=== PATIENT | male | born 1955 | race Caucasian/White ===

== ENCOUNTER 2016-08-26 13:42 | Emergency (ER) | payer MEDICARE, MEDICAID ==
[2016-08-26] MEDS ORDERED: hydrALAZINE HCL 20 MG/ML VIAL IV ONE ×2 (14:05→15:05)
--- OUTSIDE RECORDS SUMMARY | 2016-08-26 14:10 | XMS REPORT | Continuity of Care Document ---
:1955 Author Organization [facility] ([facility]) Address [address] [place] [address] Phone [phone] Care Team Providers Name Role Phone [email or web address] Primary Care Provider [phone] Source Comments This disclosure is being made pursuant to the Care Everywhere program, applicable federal and state laws, and may not contain all informaitonavailable regarding this patient.[facility] ([facility]) Active Allergies and Adverse Reactions No Known Allergies Current Medications Prescription Sig. Disp. Refills Start Date End Date Status SUPPLY blood Use to test blood 300 Strip 11 07/07/2012 Active glucose test strips sugar twice daily or as directed. Indications: DIABETES MELLITUS pravastatin 20 mg Take 1 Tab by mouth 30 Tab 5 05/23/2013 Active tablet every evening. Take instead of atorvastatin Indications: MIXED HYPERLIPIDEMIA SUPPLY FREESTYLE by In Vitro route 2 1 Each 0 09/04/2013 Active FREEDOM LITE meter times daily. Indications: TYPE 2 DIABETES MELLITUS SUPPLY FREESTYLE Use twice daily or as 150 Each 11 09/04/2013 Active lancets directed. Indications: DIABETES MELLITUS GABAPENTIN 100 mg Take 200 mg by mouth 09/25/2013 Active capsule daily amLODIPine 10 mg Take 1 Tab by mouth 30 Tab 2 11/20/2013 Active tablet daily. Indications: HYPERTENSION lisinopril 20 mg Take 20 mg by mouth Active tablet daily. calcium carbonate Take 200 mg by mouth Active (200 mg Ca) 500 mg as needed chewable tablet FOLIC ACID/VITAMIN Take 1 mg by mouth Active B COMP W-C daily (NEPHRO-MELONY PO) furosemide 80 mg Take 80 mg by mouth Active tablet Every morning. 160 mg (2 tablets) in the AM metoPROLol Take 100 mg by mouth Active succinate 100 mg XL daily tablet insulin glargine Inject 16 Units 15 mL 11 01/10/2015 Active (LanTUS SOLOSTAR) subcutaneously daily 100 unit/mL (3 mL) injection pen pantoprazole 40 mg Take 1 tablet (40 mg 60 tablet 11 01/10/2015 Active EC tablet total) by mouth 2 times daily calcium acetate 667 Take 1 capsule by 05/28/2015 Active mg capsule mouth every week. polyethylene Take as directed 4000 mL 0 06/10/2015 Active glycol-electrolyte (NULYTELY) suspension SUPPLY BD insulin USE DIRECTED WITH 100 Each 6 09/19/2015 Active UF mini 31 g x 5 MM INSULIN PENS pen needle Active Problems Patient Care Coordination Note GOALS OF CARE AND TREATMENT PREFERENCES Diagnosis: Gastrointestinal bleeding, hemorrhagic shock Prognosis: Guarded Goal(s) of Care: Resolution of bleeding and shock Is the patient an inpatient? He is impatient Most important goal of care: Resolution of bleeding or shock Additional remarks: Patient does not have DPOA Patient able to make own decisions?: No Problem Noted Date Tip's gland hyperplasia of duodenum 12/11/2015 Hypoparathyroidism 01/09/2015 Hypocalcemia 01/09/2015 Anemia due to blood loss, acute 01/09/2015 Duodenal ulcer with hemorrhage 01/08/2015 ESRD (end stage renal disease) 01/07/2015 Type II or unspecified type diabetes mellitus without mention of 01/07/2015 complication, not stated as uncontrolled GIB (gastrointestinal bleeding) 01/06/2015 Hemorrhagic shock 01/06/2015 Hypercalcemia 10/23/2013 Encounter for venous access device care 06/16/2013 A-V fistula 03/27/2013 Preop examination 03/27/2013 ESRD needing dialysis 01/23/2013 Acidosis, metabolic 2013 Hyperphosphatemia 2013 Proteinuria 2013 Smoking 10/09/2012 Hyperopia with presbyopia 08/18/2012 Renal cell carcinoma 08/09/2012 Overview: 07/2012 Renal cell carcinoma, clear type, En[place] grade 2 Type II or unspecified type diabetes mellitus without mention of 06/03/2012 complication, uncontrolled Obesity (BMI 30-39.9) 04/28/2012 Health counseling 10/28/2011 CASISE (obstructive sleep apnea) 07/12/2011 Hyperlipidemia 07/12/2011 HTN (hypertension) 07/12/2011 TIA (transient ischemic attack) 07/12/2011 CKD (chronic kidney disease) stage 5, GFR less than 15 ml/min 04/28/2007 Hypoparathyroidism 10/21/2006 Overview: Autosomal dominant Familial hypoparathyroidism Resolved Problems Problem Noted Date Resolved Date Hyperkalemia 08/11/2012 09/28/2012 Acute blood loss anemia 08/10/2012 08/11/2012 Chronic kidney disease, unspecified 06/11/2006 04/27/2012 Immunizations Name Dates Previously Given Next Due Influenza, PF 04/04/2012 Pneumococcal, unspecified 03/17/2015 Tdap 10/28/2011 Social History Tobacco Use Types Packs/Day Years Used Date Current Some Day Smoker Cigarettes 1 30 Smokeless Tobacco: Never Used Tobacco Cessation:Ready to Quit: No; Counseling Given: Yes Comments: Alcohol Use Drinks/Week oz/Week Comments Yes 1 Glasses of wine 1 beer per month 2 Cans of beer 1 Standard drinks or equivalent Last Filed Vital Signs Vital Sign Reading Time Taken Blood Pressure 120/79 12/11/2015 11:07 AM CDT Pulse 80 12/11/2015 11:07 AM CDT Temperature 37 C (98.6 F) 12/11/2015 11:07 AM CDT Respiratory Rate 18 12/11/2015 11:07 AM CDT Height 1.778 m (5' 10") 12/11/2015 11:07 AM CDT Weight 109.7 kg (241 lb 13.5 oz) 12/11/2015 11:07 AM CDT Body Mass Index 34.7 12/11/2015 11:07 AM CDT Oxygen Saturation 94% 08/22/2015 2:37 PM CDT Plan of Care Patient Goal Type Goal Weight Weight below 91 kg (200 lb) Lifestyle Quit smoking / using tobacco Health Maintenance Due Date Last Done Comments Hepatitis B Vaccine (1 of 3 - 1955 Primary Series) MMR Vaccine 1975 Pneumococcal Vaccine (1 of 3 01/03/1976 - PCV13) Sigmoidoscopy Colon Cancer 2007 Screening DIABETIC: Foot Exam 10/27/2012 10/28/2011, 10/28/2011 FOBT Colon Cancer Screening 10/27/2012 10/28/2011 Prostate Cancer Screening 10/27/2012 10/28/2011 DIABETIC: Retinal Eye Exam 08/18/2013 08/18/2012, 08/18/2012, 07/16/2011 (Previously completed) DIABETIC: Cholesterol 10/07/2013 10/07/2012, Additional history exists 07/07/2012, 10/28/2011 Diabetic: Hdl 10/07/2013 10/07/2012, Additional history exists 07/07/2012, 10/28/2011 Diabetic: Ldl 10/07/2013 10/07/2012, Additional history exists 07/07/2012, 10/28/2011 DIABETIC: Triglycerides 10/07/2013 10/07/2012, Additional history exists 07/07/2012, 10/28/2011 DIABETIC: Microalbumin 12/26/2013 12/26/2012, 10/28/2011 DIABETIC: Hemoglobin A1C 06/19/2015 12/17/2014 Additional history exists (Previously completed), 10/07/2012, 07/07/2012 Influenza Vaccine: Seasonal 12/16/2015 04/04/2012 (#1) Td Vaccine 10/27/2021 10/28/2011 Colonoscopy 06/25/2025 06/25/2015 Tdap Vaccine Completed 10/28/2011 HCV Screening Completed 01/07/2015, 05/08/2013, 04/04/2012 Results from Last 3 Months Not on file
[2016-08-26] MEDS ORDERED: hydrALAZINE HCL 20 MG/ML VIAL ONE ×2 (14:14→15:03)
[2016-08-26 14:27] LABS: Hematocrit 40.1 % (42.0-52.0); Hemoglobin 13.6 gm/dL (13.5-18.0); Mean Cell Volume 92.8 fl (78-100); Mean Corpuscular Hemoglobin 31.5 pg (27-31); Mean Corpuscular Hgb Conc 33.9 g/dl (32-36); Mean Platelet Volume 11.1 fl (6.0-9.5); Neutrophil # 4.5 K/mm3 (1.3-6.0); Neutrophil % 68.9 % (42-75.0); Platelet Count 159 K/mm3 (150-450); Red Blood Count 4.32 M/mm3 (4.7-6.0); White Blood Count 6.6 K/mm3 (4.0-10.5)
[2016-08-26 14:33] LABS: Albumin * 3.6 gm/dl (3.4-5.0); Anion Gap 9.3 mmol/L (6.8-13.8); BUN/Creatinine Ratio 3.5 (9.0-21.6); Bilirubin, Total 0.4 mg/dL (0.0-1.1); Ca. Corrected For Albumin 8.5 mg/dL (8.4-10.2); Calcium * 8.5 mg/dL (7.9-10.9); Carbon Dioxide 34.9 mmol/L (24-32.6); Magnesium 1.6 mg/dL (1.2-2.8); Phosphorus 2.9 mg/dL (2.2-4.2); Potassium 4.2 mmol/L (3.4-4.6)
[2016-08-26 15:10] LABS: Prothrombin Time (Patient) 10.3 Seconds (9.4-11.4)
[2016-08-26 15:12] LABS: INR 0.99 INR (0.90-1.10)
[2016-08-26 15:29] VITALS: BP 145/85
[2016-08-26] MEDS ORDERED: HYDROcodone/ACETAMINOPHEN 1 EACH TABLET PO ONE (15:43)
--- NOTE | 2016-08-26 16:08 | ERNOTE ---
Headache ER HPI - General Presenting Symptoms: headache Time Seen by Provider: 08/26/16 14:03 Source: patient - Immun/Allergies/Home Medications Immunizations: IMMUNIZATION HX Immunizations Up to Date No Hx Pneumococcal Vaccination Yes Allergies/Adverse Reactions: Allergies No Known Allergies Allergy (Verified 08/26/16 13:51) Home Medications: HOME MEDICATIONS Furosemide 160 mg PO QAM 03/17/12 [Last Taken 03/17/12] Pravastatin Sodium 20 mg PO HS 04/03/13 [Last Taken Unknown] Calcium Carbonate [Tums] 1,500 mg PO TID 12/28/14 [Last Taken Unknown] Folic Acid/B Cplx/C/Selen/Zinc [Dialyvite 3,000 Tablet] 1 each PO DAILY [Last Taken Unknown] Furosemide [Lasix] 80 mg PO HS 12/28/14 [Last Taken Unknown] Gabapentin [Neurontin] 100 mg PO DAILY 12/28/14 [Last Taken Unknown] Lanthanum Carbonate [Fosrenol] 1,000 mg PO TID 12/28/14 [Last Taken Unknown] Lisinopril [Zestril] 20 mg PO DAILY 12/28/14 [Last Taken Unknown] Metoprolol Tartrate 100 mg PO DAILY 12/28/14 [Last Taken Unknown] Insulin Glargine,Hum.rec.anlog [Lantus] 55 units SC DAILY 03/06/15 [Last Taken Unknown] HYDROcodone/ACETAMINOPHEN [[place] 5-325] 1 each PO Q4H #10 tablet 08/26/16 [Last Taken Unknown] hydrALAZINE HCL [Hydralazine HCl] 25 mg PO TID #90 tablet 08/26/16 [Last Taken Unknown] - Pain Pain Score: 8 - History of Present Illness Narrative: He presents from dialysis with markedly elevated blood pressure. Despite receiving dialysis and 2-3 L of fluid removed from him his blood pressure remained markedly high and he appeared to have some decreased level of consciousness according to the dialysis nurses. Patient was able to answer all my questions here he simply complained of a headache. Timing of Headache: gradual Quality: Present: pressure, throbbing Severity Maximum: Present: moderate Severity-Currently: Present: moderate Headache frequency: Present: frequent headaches, chronic headaches Associated Symptoms: Reports: denies symptoms Exacerbated by:: Reports: light Prior Treament: Reports: recently seen, treated by physician Review of Systems - Review of Systems Constitutional: Present: See HPI EYE: Present: no symptoms reported ENT: Present: no symptoms reported Respiratory: Present: no symptoms reported Cardiology: Present: no symptoms reported Gastrointestinal/Abdominal: Present: no symptoms reported Genitourinary: Present: no symptoms reported Musculoskeletal: Present: no symptoms reported Skin: Present: no symptoms reported Neurological: Present: See HPI, headache Endocrine: Present: no symptoms reported Hematologic/Lymphatic: Present: no symptoms reported Psych: Present: no symptoms reported - Patient's Past Medical History Patient History - Medical: Diabetes Type 2 Insulin Dependent, Hypothyroidism, Migraines, Obesity, Renal Disease, Renal Failure, Other Patient History - Cardiac/Respiratory: CVA/Stroke, Hypertension, Hyperlipidemia Patient History - Cancer: Kidney, Skin Patient History - Surgical Procedures: EGD, T & A, Other Patient History - Other: None - Family History Father Family History - Medical: , Diabetes Type 2 Family History - Cardiac/Respiratory: Hypertension, Other Mother Family History - Medical: , Diabetes Type 2 Family History - Cardiac/Respiratory: Hypertension, Other Sister Family History - Medical: Diabetes Type 2 - Social History Living Situations: home Abuse History: No History of abuse Psych History: No pertinent hx Alcohol Use: none Drug Use: none - Immunizations Immunizations Up to Date: No Hx Pneumococcal Vaccination: Yes Physical Exam - Physical Exam General Appearance: Present: wd/wn, alert, moderate distress Eye Exam: Normal inspection: bilateral, PERRL: bilateral Ears, Nose, Throat: Present: normal ENT inspection, H, normal pharynx Neck: Present: normal inspection, nontender Respiratory: Present: no respiratory distress, normal breath sounds, no accessory muscle use, chest nontender, lungs clear Cardiovascular/Chest: Present: regular rate, rhythm, no murmur, normal peripheral pulses Gastrointestinal/Abdominal: Present: normal bowel sounds, nontender, nondistended, soft, no organomegaly Rectal Exam: Present: deferred Back Exam: Present: normal inspection, normal range of motion Extremity Exam: Present: normal inspection, non-tender, no edema, normal range of motion Neurological Exam: Present: alert, oriented, normal mood/affect Skin Exam: Present: normal color, warm/dry Lymphatic Exam: Present: no adenopathy ED Progress - Results and Orders Patient's Lab Results:: I have reviewed the patient's lab results. - Vital Signs Patient's Vital Signs:: I have reviewed the patient's vital signs. Vital Signs: Vital Signs 08/26/16 08/26/16 08/26/16 13:46 13:58 14:16 Temperature 36.0 C L Pulse Rate 71 66 65 Respiratory 12 12 Rate Blood Pressure 150/105 191/87 164/86 O2 Sat by Pulse 99 99 Oximetry 08/26/16 08/26/16 15:07 15:28 Temperature Pulse Rate 69 70 Respiratory 12 Rate Blood Pressure 191/111 145/85 O2 Sat by Pulse 99 Oximetry - CT/Ultrasound CT/Ultrasound Narrative: CT results were reviewed - Progress/Reassessment Chief Complaint: Headache Progress:: Improved Plan - Plan Plan: Patient was given IV hydralazine here in the emergency department his blood pressure to the 140/80 range and he felt considerably better. While his headache is improved I will send him home with both oral hydralazine to take and a brief course of [place] until his blood pressure gets more stabilized. Departure Clinical Impression: Renal dialysis status, Hypertension associated with stage 5 chronic kidney disease due to type 2 diabetes mellitus - Departure Disposition: Home self-care Condition: Good Instructions: Hypertension, [id number], Chronic Kidney Disease Referrals: Ludy Lynch MD [Primary Care Provider] - Prescriptions: HYDROcodone/ACETAMINOPHEN [[place] 5-325] 1 each PO Q4H #10 tablet hydrALAZINE HCL [Hydralazine HCl] 25 mg PO TID #90 tablet
[2016-08-26] MEDS ORDERED: HYDROcodone/ACETAMINOPHEN 1 EACH TABLET ONE (16:10)
[2016-08-26] MEDS ORDERED: hydrALAZINE HCL 25 MG TABLET PO ONE (17:00)
== END 2016-08-26 16:26 | disposition home or self-care (01) ==
LOC: ER 13:42
DX: E11.22 Type 2 diabetes mellitus with diabetic chronic kidney disease (principal); I12.0 Hypertensive chronic kidney disease with stage 5 chronic kidney disease or end stage renal disease; N18.5 Chronic kidney disease, stage 5; Z99.2 Dependence on renal dialysis; Z85.828 Personal history of other malignant neoplasm of skin

== ENCOUNTER 2016-11-25 14:34 | Emergency (ER) | payer MEDICARE, MEDICAID ==
--- NOTE | 2016-11-25 15:20 | ERNOTE ---
Dizziness ER Record Presenting Symptoms: other Time Seen by Provider: 11/25/16 15:03 Source: patient Exam Limitations: no limitations Immunizations: IMMUNIZATION HX Immunizations Up to Date Yes History of Influenza Vaccine Yes Hx Pneumococcal Vaccination Yes Allergies/Adverse Reactions: Allergies Allergy/AdvReac Type Severity Reaction Status Date / Time No Known Allergies Allergy Verified 11/25/16 14:53 Home Medications: HOME MEDICATIONS Pravastatin Sodium 20 mg PO HS 04/03/13 [Last Taken Unknown] Calcium Carbonate [Tums] 500 mg PO TID 12/28/14 [Last Taken Unknown] Gabapentin [Neurontin] 100 mg PO DAILY 12/28/14 [Last Taken Unknown] Lisinopril [Zestril] 40 mg PO SUMOTUTH 12/28/14 [Last Taken Unknown] Metoprolol Tartrate 100 mg PO SUMOTUTH 12/28/14 [Last Taken Unknown] Insulin Glargine,Hum.rec.anlog [Lantus] 13 units SC HS 03/06/15 [Last Taken Unknown] HYDROcodone/ACETAMINOPHEN [[place] 5-325] 1 each PO Q4H #10 tablet 08/26/16 [Last Taken Unknown] hydrALAZINE HCL [Hydralazine HCl] 25 mg PO TID #90 tablet 08/26/16 [Last Taken Unknown] Calcium Acetate [Phoslo] 1 cap PO Q7D 11/25/16 [Last Taken Unknown] DULoxetine HCL [Cymbalta] 30 mg PO DAILY 11/25/16 [Last Taken Unknown] Gabapentin 200 mg PO HS 11/25/16 [Last Taken Unknown] Lisinopril [Zestril] 20 mg PO MOWEFR 11/25/16 [Last Taken Unknown] Metoprolol Succinate [Toprol Xl] 50 mg PO MOWEFR 11/25/16 [Last Taken Unknown] Pantoprazole Sodium [Protonix] 40 mg PO DAILY 11/25/16 [Last Taken Unknown] - History of Present Illness Narrative: Patient has renal failure and had dialysis this morning. The hospital van took him back home and when he got home he was 'not acting right' so he was brought to the ER for evaluation. When he got here he had a large BM and is feeling good now. He feels hungry, did not have anything to eat since last night, denies any other concerns. He had something similar happen at least once before Review of Systems - Review of Systems Constitutional: Absent: recent illness, fever, chills, malaise EYE: Absent: vision changes ENT: Absent: nose congestion, nasal drainage Respiratory: Absent: shortness of breath, cough Cardiology: Absent: chest pain Gastrointestinal/Abdominal: Absent: nausea, vomiting, diarrhea, abdominal pain Genitourinary: Present: no symptoms reported Musculoskeletal: Absent: back pain Neurological: Absent: headache, weakness, numbness - Patient's Past Medical History Patient History - Medical: Diabetes Type 2 Insulin Dependent, Hypothyroidism, Migraines, Obesity, Renal Disease, Renal Failure, Other Patient History - Cardiac/Respiratory: CVA/Stroke, Hypertension, Hyperlipidemia Patient History - Cancer: Kidney, Skin Patient History - Surgical Procedures: EGD, T & A, Other Patient History - Other: None - Family History Father Family History - Medical: , Diabetes Type 2 Family History - Cardiac/Respiratory: Hypertension, Other Mother Family History - Medical: , Diabetes Type 2 Family History - Cardiac/Respiratory: Hypertension, Other Sister Family History - Medical: Diabetes Type 2, Renal Failure Family History - Cardiac/Respiratory: Hypertension - Social History Living Situations: home Abuse History: No History of abuse Psych History: No pertinent hx Smoking Status: Current every day smoker Alcohol Use: none Drug Use: none - Immunizations Immunizations Up to Date: Yes Hx Pneumococcal Vaccination: Yes History of Influenza Vaccine: Yes Physical Exam - Physical Exam General Appearance: Present: wd/wn, alert, no apparent distress Eye Exam: Normal inspection: bilateral, PERRL: bilateral Respiratory: Present: no respiratory distress, normal breath sounds, lungs clear Cardiovascular/Chest: Present: regular rate, rhythm, no murmur Gastrointestinal/Abdominal: Present: normal bowel sounds, nontender, nondistended, soft Neurological Exam: Present: alert, oriented, normal mood/affect Skin Exam: Present: normal color, warm/dry ED Progress - Vital Signs Patient's Vital Signs:: I have reviewed the patient's vital signs. Vital Signs: Vital Signs 11/25/16 14:45 Temperature 35.5 C L Pulse Rate 70 Respiratory 16 Rate Blood Pressure 98/56 O2 Sat by Pulse 98 Oximetry - Progress/Reassessment Chief Complaint: Dizziness Progress Note-Subjective: 11/25/16 15:41 reviewed orthostatic vitals 11/25/16 16:18 patient had a sandwich and drank four glasses of water, feeling much better, blood pressure better, ready to go home Departure Clinical Impression: Dehydration - Departure Disposition: Home self-care Condition: Fair Instructions: Dehydration, Adult, [id number] Referrals: Ludy Lynch MD [Primary Care Provider] -
[2016-11-25 16:19] VITALS: BP 109/66
== END 2016-11-25 16:25 | disposition home or self-care (01) ==
LOC: ER 14:34
DX: E86.0 Dehydration (principal)

== ENCOUNTER 2017-05-18 00:18 | Emergency (ER) | payer MEDICARE, MEDICAID ==
--- NOTE | 2017-05-18 01:12 | ERNOTE ---
Trauma/Assault HPI - General Stated Complaint: FALL Time Seen by Provider: 05/18/17 01:01 Source: patient, EMS Exam Limitations: no limitations - Immun/Allergies/Home Medications Immunizations: IMMUNIZATION HX Immunizations Up to Date Yes History of Influenza Vaccine Yes Hx Pneumococcal Vaccination Yes Allergies/Adverse Reactions: Allergies No Known Allergies Allergy (Verified 05/18/17 00:31) Home Medications: HOME MEDICATIONS Pravastatin Sodium 20 mg PO HS 04/03/13 [Last Taken Unknown] Calcium Carbonate [Tums] 500 mg PO TID 12/28/14 [Last Taken Unknown] Gabapentin [Neurontin] 100 mg PO DAILY 12/28/14 [Last Taken Unknown] Lisinopril [Zestril] 40 mg PO SUMOTUTH 12/28/14 [Last Taken Unknown] Metoprolol Tartrate 100 mg PO SUMOTUTH 12/28/14 [Last Taken Unknown] Insulin Glargine,Hum.rec.anlog [Lantus] 13 units SC HS 03/06/15 [Last Taken Unknown] HYDROcodone/ACETAMINOPHEN [[place] 5-325] 1 each PO Q4H #10 tablet 08/26/16 [Last Taken Unknown] hydrALAZINE HCL [Hydralazine HCl] 25 mg PO TID #90 tablet 08/26/16 [Last Taken Unknown] Calcium Acetate [Phoslo] 1 cap PO Q7D 11/25/16 [Last Taken Unknown] DULoxetine HCL [Cymbalta] 30 mg PO DAILY 11/25/16 [Last Taken Unknown] Gabapentin 200 mg PO HS 11/25/16 [Last Taken Unknown] Lisinopril [Zestril] 20 mg PO MOWEFR 11/25/16 [Last Taken Unknown] Metoprolol Succinate [Toprol Xl] 50 mg PO MOWEFR 11/25/16 [Last Taken Unknown] Pantoprazole Sodium [Protonix] 40 mg PO DAILY 11/25/16 [Last Taken Unknown] - History of Present Illness Narrative: Pt states that he slipped and fell on the day before yesterday, felt he was all right and continued on with his usual activities. Last night he slipped and fell again, he called EMS initially with report that he just needed assistance getting up. After EMS arrived he decided that he should come to the ED to get his leg and ankle evaluated. Location Occurred: Reports: home Pain Location: Reports: lower extremity - left Method of Injury: Reports: fall Severity: mild Loss of Consciousness: Reports: no loss of consciousness Associated Symptoms - Trauma: Reports: denies symptoms Review of Systems - Review of Systems Constitutional: Absent: recent illness, fever EYE: Present: no symptoms reported ENT: Present: no symptoms reported Respiratory: Absent: shortness of breath Cardiology: Absent: chest pain Musculoskeletal: Present: See HPI, joint pain Skin: Present: no symptoms reported Neurological: Present: no symptoms reported Endocrine: Present: no symptoms reported Hematologic/Lymphatic: Present: no symptoms reported Psych: Present: no symptoms reported - Patient's Past Medical History Patient History - Medical: Diabetes Type 2 Insulin Dependent, Hypothyroidism, Migraines, Obesity, Renal Disease, Renal Failure, Other Patient History - Cardiac/Respiratory: CVA/Stroke, Hypertension, Hyperlipidemia Patient History - Cancer: Kidney, Skin Patient History - Surgical Procedures: EGD, T & A Patient History - Other: None - Family History Father Family History - Medical: , Diabetes Type 2 Family History - Cardiac/Respiratory: Hypertension, Other Mother Family History - Medical: , Diabetes Type 2 Family History - Cardiac/Respiratory: Hypertension, Other Sister Family History - Medical: Diabetes Type 2, Renal Failure Family History - Cardiac/Respiratory: Hypertension - Social History Living Situations: home Abuse History: No History of abuse Psych History: No pertinent hx Smoking Status: Current every day smoker Patient requests Smoking Cessation Consult: No Initiate information on Smoking Cessation: No Alcohol Use: none Drug Use: none - Immunizations Immunizations Up to Date: Yes Hx Pneumococcal Vaccination: Yes History of Influenza Vaccine: Yes Physical Exam - Physical Exam General Appearance: Present: wd/wn, alert, no apparent distress Head Exam: Present: normal inspection, no evidence of injury Eye Exam: Normal inspection: bilateral, PERRL: bilateral Neck: Present: normal inspection, full range of motion Respiratory: Present: no respiratory distress, no accessory muscle use Cardiovascular/Chest: Present: regular rate, rhythm, no murmur Gastrointestinal/Abdominal: Present: normal bowel sounds, nontender, soft Extremity Exam: Present: normal except - - left dialysis shunt present with good thrill in left forearm. Right brachial/ anticubital shows previous A/V shunt greatly enlarged and firm without thrill. , other - left ankle tenderness at the deltoid ligament, mild tenderness with inversion. Left knee, pain with some movements no specific tenderness. Neurological Exam: Present: alert, oriented, normal mood/affect, no motor/ sensory deficits Skin Exam: Present: normal color, warm/dry Lymphatic Exam: Present: no adenopathy Detailed Trauma Exam Best Eye Response ([place]): (4) open spontaneously Best Verbal Response ([place]): (5) oriented Best Motor Response ([place]): (6) obeys commands [place] Total: 15 - C-Spine cleared by: Neg history & exam - T, L-Spine cleared by: Neg hx and exam ED Progress - Vital Signs Vital Signs: Vital Signs 05/18/17 00:24 Temperature 36.5 C Pulse Rate 72 Respiratory 20 Rate Blood Pressure 189/75 O2 Sat by Pulse 97 Oximetry - X-Ray X-Ray #1 X-Ray: tibula/fibula Interpretation: Interp. by me X-ray Comments: no fracture or dislocation, no STS noted. X-Ray #2 X-Ray: knee Interpretation: Interp. by me X-ray Comments: no fracture or dislocation, no STS noted. - Progress/Reassessment Chief Complaint: Fall Progress:: Improved Departure Clinical Impression: Ankle sprain Qualifiers: Encounter type: initial encounter Involved ligament of ankle: deltoid ligament Laterality: left Qualified Code(s): S93.422A - Sprain of deltoid ligament of left ankle, initial encounter Knee sprain Qualifiers: Encounter type: initial encounter Involved ligament of knee: unspecified ligament Laterality: left Qualified Code(s): S83.92XA - Sprain of unspecified site of left knee, initial encounter - Departure Disposition: Home self-care Condition: Good Instructions: RICE for Routine Care of Injuries, [id number], Ankle Sprain, [id number], Knee Sprain, [id number] Additional Instructions: Avoid being up on your feet for a day or so. Walk carefully when you are up. Keep the [place] wrap on except for bathing for about 1 week. See your primary care provider if not improving in 1 week. Referrals: Ludy Lynch MD [Primary Care Provider] - Critical Care Time - Critical Care Critical Time Spent:: No
[2017-05-18 02:19] VITALS: BP 164/86
== END 2017-05-18 01:40 | disposition home or self-care (01) ==
LOC: ER 00:18
DX: Z85.828 Personal history of other malignant neoplasm of skin; W01.0XXA Fall on same level from slipping, tripping and stumbling without subsequent striking against object, initial encounter; F17.200 Nicotine dependence, unspecified, uncomplicated; Z85.528 Personal history of other malignant neoplasm of kidney; S93.422A Sprain of deltoid ligament of left ankle, initial encounter; S83.92XA Sprain of unspecified site of left knee, initial encounter